=== PATIENT | female | born 1975 | race Caucasian/White ===

== ENCOUNTER 2024-11-21 22:07 | Emergency (ER) | payer OTHER ==
[~2024-11-21] VITALS: Wt 62.8 kg
[2024-11-21] MEDS ORDERED: ZANAFLEX4 M1 PO (22:37)
[2024-11-21] MEDS ORDERED: Ketorolac 30 MG/ML VIAL IM ONE (22:45)
[2024-11-21 23:07] VITALS: BP 124/78
== END 2024-11-21 23:07 | disposition home or self-care (01) ==
LOC: ED 22:07
DX: S83.92XA Sprain of unspecified site of left knee, initial encounter (principal); W01.0XXA Fall on same level from slipping, tripping and stumbling without subsequent striking against object, initial encounter; Y93.39 Activity, other involving climbing, rappelling and jumping off
CPT/HCPCS: J1885